=== PATIENT | male | born 1955 | race Caucasian/White ===

== ENCOUNTER → 2016-12-17 | Outpatient (CLI) | payer BC ==
[~2016-12-17] MED LIST: MULT-506 PO; NIAC500T11 PO; POTATAB13 PO; RESVERATROL PO
== END | disposition home or self-care (01) ==
LOC: C.LABSPEC 16:24
PROVIDERS: ATTEND Dermatology
DX: L60.3 Nail dystrophy (principal); B35.3 Tinea pedis

== ENCOUNTER → 2017-05-20 | Outpatient (CLI) | payer BC | END | disposition home or self-care (01) | LOC: C.PATHSPEC 17:16 | PROVIDERS: ATTEND Plastic Surgery | DX: D23.5 Other benign neoplasm of skin of trunk (principal) ==

== ENCOUNTER → 2017-05-30 | Outpatient (CLI) | payer BC | END | disposition home or self-care (01) | LOC: C.LABSPEC 13:58 | PROVIDERS: ATTEND Dermatology | DX: B35.1 Tinea unguium (principal) ==